=== PATIENT | female | born 1935 | race Caucasian/White ===

== ENCOUNTER 2017-01-02 10:43 | Emergency (ER) | payer OTHER, MEDICAID ==
[~2017-01-02] VITALS: Ht 157.5 cm; Wt 57.6 kg
[~2017-01-02 10:43] MED LIST: ACT15 PO; AMLODIPINE BESY10 M1 PO; ASPIRIN325 MG PO; BACLOFEN20 MG PO; BENAZEPRIL HYDR40 M1 PO; LACTULOSE10 GM/152 PO; LANTUS SOLOS100 U/M1 SC; LORAZEPAM1 MG PO; METFORMIN850 M1 PO; NORCO1 TA2 PO; OMEPRAZOLE20 M2 PO; OMEPRAZOLE40 M1 PO; OXYBUTYNIN CHLO10 MG PO; RANITIDINE 150150 MG PO; SIMVASTATIN40 M1 PO; TENORMIN25 MG PO; [UNRECOGNIZED DRUG - OTHER] PO
[2017-01-02 12:30] VITALS: BP 156/68
== END 2017-01-02 12:38 | disposition home or self-care (01) ==
LOC: ED 10:43
DX: J20.9 Acute bronchitis, unspecified (principal); E11.9 Type 2 diabetes mellitus without complications; I10 Essential (primary) hypertension; Z88.1 Allergy status to other antibiotic agents; Z88.8 Allergy status to other drugs, medicaments and biological substances
CPT/HCPCS: J7512; J7613; J7644; Q0092

== ENCOUNTER 2019-08-28 10:21 | Emergency (ER) | payer OTHER ==
[~2019-08-28] VITALS: Ht 157.5 cm; Wt 56.2 kg
[2019-08-28 10:38] VITALS: Ht 157.5 cm; Wt 56.2 kg
[2019-08-28 12:50] LABS: BASOPHIL % 0.7 % (0-2); PLATELET COUNT 194 x10^3mcL (130-400); RED CELL DISTRIBUTION WIDTH 14.2 % (11.5-14.5)
[2019-08-28 13:23] LABS: CHLORIDE SERUM 102 mmol/L (98-107); POTASSIUM SERUM 4.3 mmol/L (3.5-5.1); SODIUM SERUM 139 mmol/L (136-145)
[2019-08-28 13:24] LABS: ALBUMIN 3.6 g/dL (3.4-5.0); AST/SGOT 25 U/L (15-37); BILIRUBIN TOTAL 0.32 mg/dL (0.20-1.00); CALCIUM 9.8 mg/dL (8.5-10.1); CARBON DIOXIDE 30.8 mmol/L (21-32); CREATININE SERUM 0.9 mg/dL (0.6-1.0); GLUCOSE SERUM 138 mg/dL (74-106); TOTAL PROTEIN, SERUM 8.1 g/dL (6.4-8.2)
[2019-08-28 13:25] LABS: ALKALINE PHOSPHATASE 77 U/L (46-116); ALT/SGPT 20 U/L (14-59); CHOLESTEROL 171 mg/dL (<200); MAGNESIUM 2.2 mg/dL (1.8-2.4)
[2019-08-28 13:26] LABS: HDL CHOLESTEROL 61 mg/dL (40-60); T4(THYROXINE) 10.5 ug/dL (4.7-13.3)
[2019-08-28 13:42] LABS: LIPASE 85 IU/L (73-393)
[2019-08-28 14:16] LABS: microscopic required? YES; urine erythrocyte NEGATIVE (NEGATIVE)
[2019-08-28 14:55] VITALS: BP 152/89
[2019-08-28 15:02] LABS: AMPHETAMINE QUAL UR NONE DETECTED (See below)
== END 2019-08-28 14:55 | disposition home or self-care (01) ==
LOC: ED 10:21
PROVIDERS: Emergency Medicine
DX: S20.221A Contusion of right back wall of thorax, initial encounter (principal); M81.0 Age-related osteoporosis without current pathological fracture; M51.34 Other intervertebral disc degeneration, thoracic region; E11.9 Type 2 diabetes mellitus without complications; I10 Essential (primary) hypertension; E78.00 Pure hypercholesterolemia, unspecified; Z88.1 Allergy status to other antibiotic agents; Z88.8 Allergy status to other drugs, medicaments and biological substances; W01.0XXA Fall on same level from slipping, tripping and stumbling without subsequent striking against object, initial encounter; Y93.89 Activity, other specified; Y92.89 Other specified places as the place of occurrence of the external cause; Y99.8 Other external cause status
CPT/HCPCS: 36415; 82962; 83880; G0480

== ENCOUNTER 2020-09-17 03:57 | Observation (INO) | payer OTHER, SELFPAY ==
[~2020-09-17] VITALS: Ht 160 cm; Wt 58.2 kg
[~2020-09-17 03:57] MED LIST changes: +AMLODIPINE BESY10 M2 PO; +ECO81 PO; +ELIQUIS2.5 MG PO; +GLIPIZIDE XL5 M2 PO; +ISOSORBIDE30 M1 PO; +KEF500 PO; +LASIX20 MG PO; +PLAVIX75 M1 PO; +SIMVASTATIN80 M1 PO; +XAN25 PO
--- NOTE | 2020-09-17 04:04 | NUR ---
PT BIB [facility] WITH C/O SOB X2HRS [employer]. PER MEDICS PT HAD O2 SAT IN 73% ON SCENE AND PLACED ON CPAP. PT PLACED ON BIPAP AT THIS TIME WITH O2 SAT OF 100%. PT STATES BEING SEEN HERE A WEEK AGO FOR SAME ISSUE AND WAS ADMITTED. PT IS A&OX4, SPEAKING IN FULL SENTENCES WITH INCREASED WORK OF BREATHING WHEN SPEAKING. PT PLACED IN GOWN, ON FULL CM WITH NSR NOTED, LUNGS NOTED TO HAVE WHEEZES MARY, RESPS EQUAL AND DEEP, NO ACUTE DISTRESS NOTED AT THIS TIME. IV TO R HAND STARTED BY MEDICS, FLUSHED WITH 10ML OF NS, PATENT NO INFIILTRATION NOTED. DR MERCADO AT BEDSIDE FOR MSE. AWAITING FURTHER ORDERS, WILL CONT TO MONITOR.
--- NOTE | 2020-09-17 04:05 | NUR ---
RT AT BEDSIDE TO PLACE PT ON BIPAP AND TO DRAW ABG
--- NOTE | 2020-09-17 04:09 | NUR ---
PT O2 SAT AT 100% ON BIPAP. RT PLACING PT ON NC FOR TRIAL. BIPAP SETTINGS: RATE 16, 02 50%, IPAP 10
--- NOTE | 2020-09-17 04:11 | NUR ---
PT PLACED ON 5L OF O2 VIA NC. O2 SAT AT 98%, 28 BREATHS PER MIN, REGULAR WOB.
--- NOTE | 2020-09-17 04:15 | NUR ---
PT GIVEN CONSENT TO GIVE SON SOLEDAD AN UPDATE OF PT'S STATUS. SOLEDAD: [phone]
--- NOTE | 2020-09-17 04:24 | NUR ---
SPOKE WITH SON SOLEDAD TO GIVE AN UPDATE ON PT'S STATUS AND TO COLECTED MED RECON.
[2020-09-17] MEDS ORDERED: TENORMIN25 MG PO (04:30)
--- NOTE | 2020-09-17 04:30 | NUR ---
PLACED PT ON 4L NASAL CANNULA AFTER PLACING ON BIPAP WHEN PT ARRIVED. PT TOLERATING WELL. SPO2 100% AND RR 25. WILL CONT TO MONITOR. NO NOTED RESP. DISTRESS
[2020-09-17] MEDS ORDERED: LOTENSIN40 MG PO (04:31)
[2020-09-17] MEDS ORDERED: IPRATROPIUM BROM3 M2 HHN (04:33)
[2020-09-17] MEDS ORDERED: PROMETH-CODEIN 65 ML PO (04:34)
[2020-09-17] MEDS ORDERED: MEDI-FIRST ASP325 MG (04:34)
[2020-09-17 05:34] LABS: BASOPHIL % 0.9 % (0.2-1.3); PLATELET COUNT 246 x10^3mcL (179-408)
[2020-09-17 05:37] LABS: RED CELL DISTRIBUTION WIDTH 15.2 % (12.3-17.7)
[2020-09-17 05:40] LABS: CARBON DIOXIDE 23.7 mmol/L (21-32); CHLORIDE SERUM 101 mmol/L (98-107); CREATININE SERUM 1.2 mg/dL (0.6-1.0); GLUCOSE SERUM 272 mg/dL (74-106); POTASSIUM SERUM 5.1 mmol/L (3.5-5.1); SODIUM SERUM 137 mmol/L (136-145)
[2020-09-17 05:41] LABS: ALBUMIN 3.6 g/dL (3.4-5.0); ALKALINE PHOSPHATASE 86 U/L (46-116); ALT/SGPT 22 U/L (14-59); AST/SGOT 15 U/L (15-37); BILIRUBIN TOTAL 0.36 mg/dL (0.20-1.00); C REACTIVE PROTEIN 0.2 mg/dL (<=0.9); LACTIC DEHYDROGENASE (LDH) 312 U/L (100-190); TOTAL PROTEIN, SERUM 7.7 g/dL (6.4-8.2)
--- NOTE | 2020-09-17 07:10 | NUR ---
REPORT GIVEN TO OANH SOSA TO ASSUME PT CARE
--- NOTE | 2020-09-17 07:11 | NUR ---
AUSSMING CARE OF PT AT THIS TIME. PT LATYING IN POSITION OF COMFORT. PILLOW ADJUSTED FOR COMFORT. PT AA/OX4. RESP EVEN AND UNLABORED. PT ON 5L O2 VIA NC. PENDING PLACEMENT TO TELE ROOM. PT ON FULL CM. PT DENIES PAIN AT THIS TIME. WILL CONT TO MONITOR
[2020-09-17 07:22] LABS: microscopic required? YES; urine erythrocyte NEGATIVE (NEGATIVE)
--- NOTE | 2020-09-17 08:15 | NUR ---
PT SAT UP RIGHT AND MOVED UP IN BED. PT ROLLED AND P,LACED ON BED KENT FOR RESTROOM USE AND REDNESS NOTED THE COCCXY AREA. PT CLEANED AND SAT UP. BREAKFEST TRAY GIVEN. PT ON CM. AA/OX4. RESP EVEN AND UNLABORED. WILL CONT TO MONITOR
--- NOTE | 2020-09-17 08:24 | NUR ---
CALLED TO PT ROOM AND PT HAD D/C'ED IV FROM RIGHT HAND CATH INTACT. BLEEDING CONTROLED.
--- NOTE | 2020-09-17 08:29 | NUR ---
REPORT CALLED TO TARYN SOSA TO ASSUME CARE OF PT.
--- NOTE | 2020-09-17 08:37 | NUR ---
22G IV PLACED LAC
--- NOTE | 2020-09-17 09:00 | NUR ---
ADMITTED 84YO PLE[facility]AD[facility] FROM ED. CC:"COULDNT BREATH" DX: ACUTE ONSET CHF, RESPIRATORY FAILURE. ACCOMPANIED BY 2 ED STAFF VIA [employer]. PLACED ON TELE 13, NSR, HR 58, DENIES CHEST PAIN/PRESSURE. AOX4, SPEECH CLEAR. NO FACIAL DROOP. PT USES GLASSES AND UPPER DENTURES LEFT AT HOME. ON 4LPM VIA NC 100%02SAT, NO ACUTE RESPIRATORY DISTRESS, LUNG SOUNDS DIM BILAT, DENIES COUGHT/SOB. PT USES CANE AND WHEELCHAIR AT HOME. DENIES N/V, NO DIARRHEA. IV SITE TO LEFT AC 22G SALINE LOCK. DENIES PAIN OR DISCOMFORT AT THIS TIME. PER PT, RECIEVED PNEUMO AND FLU VACCINE LAST YEAR. ORIENTED TO BED AND CALL LIGHT SYSTEM, VERBALIZED/DEMONSTRATED UNDERSTANDING. CALL LIGHT WITHIN REACH. WILL CONTINUE TO MONITOR.
[2020-09-17 10:19] VITALS: BP 130/35
[2020-09-17 12:16] VITALS: BP 124/36
--- NOTE | 2020-09-17 14:00 | NUR ---
SPOKE WITH LEYDA, GAVE UPDATE ON PT STATUS. NO FURTHER QUESTION AT THIS TIME.
[2020-09-17 14:26] VITALS: Ht 160 cm; Wt 58.2 kg
[2020-09-17 16:17] VITALS: BP 132/48
--- NOTE | 2020-09-17 16:30 | NUR ---
PT CURRENTLY ON 4L VIA NC WITH 98-99%02SAT. TITRATED DOWN TO 2L VIA NC LOKESH 94-96%02SAT. DENIES SOB, BREATHING EVEN AND UNLABORED. ALL NEEDS ATTENDED TO. WILL CONTINUE TO MONITOR.
--- NOTE | 2020-09-17 18:27 | NUR ---
PT IN BED ON CELLPHONE AND WATCHING TV. ALERT AND ORIENTED. CONTINUE WITH 2LPM VIA NC LOKESH 96%02SAT, NO ACUTE RESPIRATORY DISTRESS. DENIES PAIN OR DISCOMFORT. ON TELE 13 NSR 60HR. IV SITE TO LEFT AC SALINE LOCK. NO CONCERN AT THIS TIME. BED IN LOWEST POSITION. CALL LIGHT WITHIN REACH. WILL ENDORSE ADDITIONAL CARE TO INCOMING RN.
--- NOTE | 2020-09-17 19:07 | NUR ---
ENDORSED ALL CARE TO IAN ABDALLA.
--- NOTE | 2020-09-17 20:39 | NUR ---
In bed awake and verbally responsive. No respiratory distress noted on 02 2lpm via n/c. Denies pain. Denies n/v. Will cont.to monitor. Call light within reach.
[2020-09-17 20:48] VITALS: BP 139/53
[2020-09-18 05:12] VITALS: BP 117/40
--- NOTE | 2020-09-18 05:25 | NUR ---
Afebrile. No significant change in condition noted. Remained on 02 2lpm via n/c. Sinus rhythm, sinus aretha on the monitor. Denies chest pain. Droplet/contact isolation, proper use of PPE and good hand hygiene observed.
[2020-09-18 07:51] VITALS: BP 128/52
[2020-09-18 07:53] LABS: BASOPHIL % 0.9 % (0.2-1.3); PLATELET COUNT 183 x10^3mcL (179-408)
--- NOTE | 2020-09-18 07:55 | NUR ---
RECEIVED PT FROM NOC SHIFT, PT AWAKE, ALERT, AND ORIENTED, NO S/S OF RESPIRATORY DISTRESS, PT ON 2L NC, SATING AT 98%, PT DENIES ANY PAIN OR DISCOMFORT, NO EDEMA NOTED, TELE #13, COMMODE AT BEDSIDE, BED AT LOWEST POSITION, CALL LIGHT WITHIN REACH, WILL CONTINUE WITH PLAN OF CARE.
[2020-09-18 08:00] LABS: RED CELL DISTRIBUTION WIDTH 14.9 % (12.3-17.7)
[2020-09-18 08:13] LABS: ALKALINE PHOSPHATASE 61 U/L (46-116); ALT/SGPT 18 U/L (14-59); AST/SGOT 18 U/L (15-37); BILIRUBIN TOTAL 0.3 mg/dL (0.20-1.00); CALCIUM 9.5 mg/dL (8.5-10.1); CARBON DIOXIDE 22.5 mmol/L (21-32); CHLORIDE SERUM 105 mmol/L (98-107); GLUCOSE SERUM 99 mg/dL (74-106); MAGNESIUM 2.2 mg/dL (1.8-2.4); POTASSIUM SERUM 4.4 mmol/L (3.5-5.1); SODIUM SERUM 137 mmol/L (136-145); TOTAL PROTEIN, SERUM 6.2 g/dL (6.4-8.2)
[2020-09-18 08:29] LABS: ALBUMIN 2.9 g/dL (3.4-5.0)
[2020-09-18 11:35] VITALS: BP 152/46
--- NOTE | 2020-09-18 13:47 | NUR ---
PT AWAKE, ALERT, AND ORIENTED, SITTING ON BED IN HIGH FOWLERS POSITION USING PHONE, PT DENIES PAIN OR DISCOMFORT AT THIS TIME, NO S/S OF RESPIRATORY DISTRESS, SATING AT 99%, ALL NEEDS WERE MET, BED AT LOWEST POSITION, CALL LIGHT WITHIN REACH, WILL CONTINUE WITH PLAN OF CARE.
[2020-09-18 15:40] VITALS: BP 150/48
--- NOTE | 2020-09-18 17:59 | NUR ---
PT AWAKE, ALERT, AND ORIENTED, EATING HER DINNER, PT DENIES PAIN OR DISCOMFORT AT THIS TIME, NO S/S OF RESPIRATORY DISTRESS, ON 2L NC, SATING AT 98%, PT ABLE TO COMMUNICATE NEEDS, ALL NEEDS WERE MET, BED AT LOWEST POSITION, CALL LIGHT WITHIN REACH, WILL ENDORSE TO NOC SHIFT NURSE.
--- NOTE | 2020-09-18 18:57 | NUR ---
NURSING CO-SIGN THE DOCUMENTATION ENTERED BY THE RN TRU HAS BEEN REVIEWED. REVIEWED/CO-SIGNED BY: Priyanka Mendez DOCUMENTATION DONE BY:PRIYANKA MENDEZ
--- NOTE | 2020-09-18 20:00 | NUR ---
PATIENT RECEIVED AWAKE, ALERT, ORIENTED X3 IN BED. RESPIRATION EVEN AND UNLABORED, BREATH SOUNDS DIMINISHED, ON O2 2L PER NASAL CANNULA, ON DROPLET PRECAUTION. SALINE LOCK TO L ANTECUBITAL AREA PATENT AND INTACT. DENIES GI DISCOMFORT, LBM 09/18. VOIDING FREELY, USES BEDSIDE COMMODE, INCONTINENT AT TIMES. GENERALIZED WEAKNESS, USES CANE AT HOME, NEEDS ASSISTANCE WITH ADL'S. SKIN DRY AND INTACT. ON TELE #13. DENIES PAIN AT THIS TIME. PLACED CALL LIGHT WITHIN REACH. WILL CONTINUE TO MONITOR.
[2020-09-18 20:15] VITALS: BP 127/39
[2020-09-19 05:10] VITALS: BP 125/33
--- NOTE | 2020-09-19 06:16 | NUR ---
PATIENT AWAKE, ALERT, MAKES NEEDS KNOWN. RESPIRATION EVEN AND UNLABORED, ON ROOM AIR. SALINE LOCK TO L ANTECUBITAL AREA PATENT AND INTACT. ASSISTED WITH NEEDS. SAFETY OBSERVED. PLACE CALL LIGHT WITHIN REACH AT ALL TIMES. MAINTAINED ON DROPLET PRECAUTION.
[2020-09-19 06:21] LABS: BASOPHIL % 1.1 % (0.2-1.3); PLATELET COUNT 184 x10^3mcL (179-408)
[2020-09-19 07:26] LABS: RED CELL DISTRIBUTION WIDTH 14.9 % (12.3-17.7)
[2020-09-19 07:27] LABS: CALCIUM 9.5 mg/dL (8.5-10.1); CREATININE SERUM 1.1 mg/dL (0.6-1.0)
--- NOTE | 2020-09-19 07:50 | NUR ---
RECEIVED PT FROM [facility] SHIFT NURSE, PT AWAKE, ALERT, AND ORIENTED X4, NO S/S OF RESPIRATORY DISTRESS, PT ON 2L NC, DENIES PAIN OR DISCOMFORT AT THIS TIME, TELE #13, COMMODE AT BED SIDE, BED AT LOWEST POSITION, CALL LIGHT WITHIN REACH, WILL CONTINUE WITH PLAN OF CARE.
[2020-09-19 08:00] LABS: ALBUMIN 3.1 g/dL (3.4-5.0)
[2020-09-19 08:14] LABS: ALKALINE PHOSPHATASE 56 U/L (46-116); ALT/SGPT 18 U/L (14-59); AST/SGOT 16 U/L (15-37); BILIRUBIN TOTAL 0.25 mg/dL (0.20-1.00); CARBON DIOXIDE 28.2 mmol/L (21-32); CHLORIDE SERUM 105 mmol/L (98-107); GLUCOSE SERUM 89 mg/dL (74-106); MAGNESIUM 2.2 mg/dL (1.8-2.4); POTASSIUM SERUM 4.4 mmol/L (3.5-5.1); SODIUM SERUM 141 mmol/L (136-145); TOTAL PROTEIN, SERUM 6.5 g/dL (6.4-8.2)
[2020-09-19 08:35] VITALS: BP 121/46
[2020-09-19 12:46] VITALS: BP 154/48
--- NOTE | 2020-09-19 13:00 | NUR ---
PT AWAKE, ALERT, AND ORIENTED, PT SITTING ON BED WHILE USING PHONE, NO S/S OF RESPIRATORY DISTRESS, ON 2L NC, SATING AT 100%. DENIES C/O PAIN OR DISCOMFORT AT THIS TIME. BED IN LOWEST POSITION, CALL LIGHT WITHIN REACH.
[2020-09-19 16:45] VITALS: BP 154/48
--- NOTE | 2020-09-19 16:47 | NUR ---
PT AWAKE, ALERT, AND ORIENTED, NO S/S OF RESPIRATORY DISTRESS. RT AT BED SIDE WITH PT.
[2020-09-19 17:43] VITALS: BP 141/70
--- NOTE | 2020-09-19 17:58 | NUR ---
PT AAOX3, IN NO ACUTE DISTRESS, ON 2L NC, SATS AT 99%, DENIES PAIN OR DISCOMFORT, PT ABLE TO COMMUNICATE HER NEEDS, ALL NEEDS WERE MET AT THIS TIME, BED AT LOWEST POSITION, CALL LIGHT WITHIN REACH. WILL ENDORSE TO NOC SHIFT NURSE.
--- NOTE | 2020-09-19 18:58 | NUR ---
DR. BROWN NOTIFIED OF A POSITIVE URINE CULTURE RESULTS OF VRE IN THE URINE, NO NEW ORDERS RECEIVED.
--- NOTE | 2020-09-19 19:00 | NUR ---
NURSING CO-SIGN THE DOCUMENTATION ENTERED BY THE RN TRU HAS BEEN REVIEWED. REVIEWED/CO-SIGNED BY: Lore Holman DOCUMENTATION DONE BY:THA MATHEW
[2020-09-19 20:25] VITALS: BP 157/50
--- NOTE | 2020-09-19 21:39 | NUR ---
ON RA NO RESP DISTRESS NOTED, BS 269 20UNITS OF LANTUS AND REGULAR 9UNITS GIVEN HS SNACKS WELL , PT TOLERATED WELL . TELE NSR .
--- NOTE | 2020-09-20 05:01 | NUR ---
BLOOD SUGAR 58 RECHECKED 60, PT'S AWAKE ASYMPTOMATIC AT THE TIME IS ABLE TO DRINK AND EAT SOME FOOD , WILL RECHECK IN 30MN.
[2020-09-20 05:43] VITALS: BP 129/50
--- NOTE | 2020-09-20 05:50 | NUR ---
BLOOD SUGER 85. PT'S AWAKE NO ACUTE DISTRESS NOTED.
--- NOTE | 2020-09-20 08:12 | NUR ---
RECEVEIVED PT FROM NOC SHIFT NURSE, PT AWAKE, ALERT, AND ORIENTED X3, NO S/S OF RESPIRATORY DISTRESS NOTED, PT ON ROOM AIR, 02 SATS AT 95%, DENIES ANY PAIN OR DISCOMFORT, COMMODE AT BEDSIDE, SKIN CDI, NO EDEMA NOTED, BED AT LOWEST POSITION, CALL LIGHT WITHIN REACH. WILL CONTINUE WITH PLAN OF CARE.
[2020-09-20 08:21] VITALS: BP 133/41
[2020-09-20 12:06] VITALS: BP 109/40; BP 98/39
[2020-09-20 12:35] VITALS: BP 130/42
--- NOTE | 2020-09-20 12:36 | NUR ---
LAST BP 130/42, MAP 70, HR 62, PT DENIES PAIN/DISCOMFORT. AWAKE, ALERT AND ORIENTED. NO RESP DISTRESS NOTED, ON RA
--- NOTE | 2020-09-20 16:40 | NUR ---
PT AAOX3, NO S/S OF RESPIRATORY DISTRESS, ON RA, SATING AT 95%, NO C/O PAIN OR DISCOMFORT, ALL NEEDS MET, BED AT LOWEST POSITION, CALL LIGHT WITHIN REACH, WILL CONTINUE WITH THE PLAN OF CARE.
[2020-09-20 17:30] VITALS: BP 143/40
--- NOTE | 2020-09-20 17:58 | NUR ---
PT AAOX3, RESTING ON BED, NO S/S OF SOB, ON ROOM AIR WITH SATS AT 96%, DENIES PAIN OF DISCOMFORT AT THIS TIME, USES BEDSIDE COMMODE WITH ASSISTANCE, PT ABLE TO COMMUNICATE ALL HER NEEDS, ALL NEEDS MET AT THIS TIME. BED AT LOWEST POSITION, CALL LIGHT WITHIN REACH. WILL ENDORSE TO NOC SHIFT NURSE.
--- NOTE | 2020-09-20 18:39 | NUR ---
NURSING CO-SIGN THE DOCUMENTATION ENTERED BY THE RN HAS BEEN REVIEWED. REVIEWED/CO-SIGNED BY: Rosangela Ellington RN DOCUMENTATION DONE BY: PRIYANKA ALMAZAN RN
[2020-09-20 20:26] VITALS: BP 118/50
--- NOTE | 2020-09-20 21:22 | NUR ---
PATIENT ALERT AND RESPONSIVE DENIES PAIN OR DISCOMFORT. PATIENT ON ROOM AIR, 02 SAT 98%. GIVEN PO ZYXVOX ORDERED FOR UTI. PLEASANT AND COOPERATIVE. ENCOURAGED TO CALL FOR ASSISTANCE NEEDED. CALL DÍAZ WITH IN REACH. BED IN ITS LOWEST POSITION. BED ALARM ON.
[2020-09-20 23:58] LABS: CARBON DIOXIDE 30.2 mmol/L (21-32); CHLORIDE SERUM 102 mmol/L (98-107); GLUCOSE SERUM 50 mg/dL (74-106); POTASSIUM SERUM 3.8 mmol/L (3.5-5.1); SODIUM SERUM 138 mmol/L (136-145)
[2020-09-20 23:59] LABS: ALBUMIN 3.1 g/dL (3.4-5.0); ALKALINE PHOSPHATASE 57 U/L (46-116); ALT/SGPT 18 U/L (14-59); AST/SGOT 18 U/L (15-37); BILIRUBIN TOTAL 0.2 mg/dL (0.20-1.00); CALCIUM 9.3 mg/dL (8.5-10.1); CREATININE SERUM 1.1 mg/dL (0.6-1.0); MAGNESIUM 2.2 mg/dL (1.8-2.4); TOTAL PROTEIN, SERUM 6.4 g/dL (6.4-8.2)
[2020-09-21 05:41] VITALS: BP 137/61
[2020-09-21 06:53] LABS: BASOPHIL % 1.3 % (0.2-1.3); PLATELET COUNT 186 x10^3mcL (179-408)
[2020-09-21 07:08] LABS: RED CELL DISTRIBUTION WIDTH 15.1 % (12.3-17.7)
--- NOTE | 2020-09-21 08:00 | NUR ---
PATIENT ALERT AND ORIENTED. UP TO BSC INDEP. DENIES SOB OR CP. TELE NSR. KEN 96-98%RA JAZLYN ODONNELL RN
[2020-09-21 08:16] LABS: ALKALINE PHOSPHATASE 71 U/L (46-116); ALT/SGPT 54 U/L (14-59); AST/SGOT 20 U/L (15-37); BILIRUBIN TOTAL 0.2 mg/dL (0.20-1.00); CALCIUM 9.2 mg/dL (8.5-10.1); CARBON DIOXIDE 28.4 mmol/L (21-32); CHLORIDE SERUM 101 mmol/L (98-107); CREATININE SERUM 1.2 mg/dL (0.6-1.0); GLUCOSE SERUM 105 mg/dL (74-106); MAGNESIUM 2.2 mg/dL (1.8-2.4); POTASSIUM SERUM 4.2 mmol/L (3.5-5.1); SODIUM SERUM 138 mmol/L (136-145); TOTAL PROTEIN, SERUM 6.7 g/dL (6.4-8.2)
[2020-09-21 08:17] LABS: ALBUMIN 3.2 g/dL (3.4-5.0)
[2020-09-21 08:19] VITALS: BP 143/64
[2020-09-21 11:31] VITALS: BP 125/63
[2020-09-21] MEDS ORDERED: ZYVOX600 MG PO (12:22)
[2020-09-21 12:53] LABS: PLATELET COUNT 193 x10^3mcL (130-400); RED CELL DISTRIBUTION WIDTH 15.3 % (11.5-14.5)
[2020-09-21 12:54] LABS: BASOPHIL % 1.4 % (0-2)
[2020-09-21 13:19] VITALS: BP 125/63
--- NOTE | 2020-09-21 15:00 | NUR ---
PATIENT AMBULATED IN ROOM. SATS REMAINED 96% ON RA. DENIES SOB. STABLE ON HER FEET. AZALIA ODONNELL RN
--- NOTE | 2020-09-21 15:45 | NUR ---
PATIENT GIVEN DISCHARGE INSTRUCTIONS. FAMILY TO TRANSPORT HOME. VERBALIZED UNDERSTANDING. ALL BELONGINGS SENT WITH PATIENT. AZALIA ODONNELL RN
== END 2020-09-21 15:43 | disposition home or self-care (01) ==
LOC: ED 03:57 → DU 06:13
PROVIDERS: Student in an Organized Health Care Education/Training Program; ADMIT Hospitalist; ATTEND Hospitalist
DX: I11.0 Hypertensive heart disease with heart failure (principal); I50.43 Acute on chronic combined systolic (congestive) and diastolic (congestive) heart failure; J96.01 Acute respiratory failure with hypoxia; E11.9 Type 2 diabetes mellitus without complications; I25.10 Atherosclerotic heart disease of native coronary artery without angina pectoris; I34.0 Nonrheumatic mitral (valve) insufficiency; N39.0 Urinary tract infection, site not specified; Z20.822 Contact with and (suspected) exposure to COVID-19
CPT/HCPCS: 36600; 82962; 83880; 85378; G0378; J1644; J1940; J2405; U0003